=== PATIENT | male | born 1975 | race Caucasian/White ===

== ENCOUNTER 2023-12-13 16:52 | Emergency (ER) | payer MEDICAID, SELFPAY ==
--- NOTE | ~2023-12-13 | XR_ITS ---
EXAMINATION: XR CHEST CLINICAL INFORMATION: Chest pain, shortness of breath COMPARISON: X-ray 09/15/2011 TECHNIQUE: Frontal view of the chest was obtained. FINDINGS: The cardiomediastinal silhouette is within normal limits. The lungs are well expanded. There is no focal consolidation, edema, or effusion. No pneumothorax. No acute osseous abnormality. XR/XR chest 1V IMPRESSION: No significant interval change from previous. No acute pulmonary process seen.
--- NOTE | 2023-12-13 16:53 | ECG_ITS ---
Test Reason : tacardya Blood Pressure : / mmHG Vent. Rate : 166 BPM Atrial Rate : 166 BPM P-R Int : 104 ms QRS Dur : 096 ms QT Int : 302 ms P-R-T Axes : 000 -23 051 degrees QTc Int : 501 ms Sinus tachycardia cannot exlude Lateral infarct , age undetermined Inferior infarct (cited on or before 15-SEP-2011) Abnormal ECG When compared with ECG of 15-SEP-2011 13:40, Vent. rate has increased BY 91 BPM Referred By: Nieves Hoffmann Electronically Signed By:STACEY MIRANDA
--- NOTE | 2023-12-13 17:00 | ED_ITS ---
HPI - General Adult General Chief complaint: Psychiatric Symptoms Stated complaint: SI,TOOK 2 ADDERAL,TACHY Time Seen by Provider: 12/13/23 18:59 Source: patient and EMS Mode of arrival: EMS Limitations: no limitations History of Present Illness HPI narrative: 48-year-old male presents with anxiety, depression and suicidal ideation, no particular plan ongoing for the past few days. Now having palpitations, patient does admit to taking to 30 mg Adderall tablets prior to arrival as well as using cocaine earlier today. Patient denies any other drugs. Denies alcohol. Denies chest pain, shortness of breath, nausea, vomiting, abdominal pain, headache, vision changes, dizziness and weakness. Related Data Allergies Allergy/AdvReac Type Severity Reaction Status Date / Time No Known Allergies Allergy Verified 12/13/23 17:25 Review of Systems 2 Review of Systems: Yes all other systems are reviewed and are negative FOR[facility]LY [facility] Past Medical History Attestation statement: The following information was validated with the patient. Source: old records reviewed and nursing notes reviewed Social History Social History Smoked in Last 30 Days: Yes Use of substances other than those prescribed or required for medical reasons: Yes Substance Use Type: Crack/Cocaine Advance Directives: No Advance Directives Information Provided: No Physical Exam ED Vital Signs: Vital Signs - 24 hr 12/13/23 17:25 12/13/23 18:24 12/13/23 20:50 Temperature 98.7 F 98.9 F Pulse Rate 142 H 132 H 123 H Respiratory Rate 20 14 15 Blood Pressure 157/86 H 99/72 112/62 Pulse Oximetry 98 97 97 Oxygen Delivery Method Room Air Room Air Room Air 12/13/23 23:41 12/13/23 23:59 Temperature 98.5 F 98.5 F Pulse Rate 83 83 Respiratory Rate 18 18 Blood Pressure 112/71 112/71 Pulse Oximetry 97 97 Oxygen Delivery Method Room Air Room Air BMI result Body Mass Index 27.9 vss Appearance: Alert.? Oriented X3.? No acute distress.? Head: Normocephalic, atraumatic, no step-offs or deformities Eyes: Pupils equal, round and reactive to light.? CVS: Normal heart rate and rhythm.? Pulses normal.? Respiratory: No respiratory distress.? Breath sounds normal.? Abdomen: Soft and nontender.? Skin: Skin warm and dry.? Normal skin color.? Normal skin turgor.? Extremities: No lower extremity edema.? No calf ttp. 5/5 strength to bilateral upper and lower extremities Back: No midline tenderness, no C-spine tenderness, full range of motion, no CVA tenderness bilaterally Neuro: Oriented X 3.? No motor deficit.? No sensory deficit. CN 2-12 intact Course Reevaluation(s) Reevaluation #1: CBC with leukocytosis 20.9 with a left shift this is likely reactive. Chemistry with low potassium 3.2, oral potassium ordered. Also noted to have magnesium of 1.5 oral Mag also ordered. Troponin 18.1, repeat pending, EKG tachycardic however no ischemic changes. Salicylates, acetaminophen ethanol negative. COVID negative. Time: 18:42 Reevaluation #2: Second troponin pending. Signed out to Dr. Obrien pending revaluation Time: 18:53 Medications Administered Discontinued Medications Generic Name Dose Route Start Last Admin Trade Name Deshawnq PRN Reason Stop Dose Admin Sodium Chloride 1,000 mls @ 999 mls/hr 12/13/23 17:30 12/13/23 18:35 Ns IV 12/13/23 18:30 Infused .Q1H1M GILDARDO Infusion Lorazepam 1 mg 12/13/23 16:59 12/13/23 17:15 Lorazepam 1 Mg Tablet PO 12/13/23 17:00 1 mg ONCE ONE Administration Lorazepam 1 mg 12/13/23 17:04 12/13/23 17:15 Lorazepam 1 Mg Tablet PO 12/13/23 17:05 1 mg ONCE ONE Administration Magnesium Oxide 400 mg 12/13/23 18:25 12/13/23 19:26 Magnesium Oxide 400 Mg Tablet PO 12/13/23 18:26 400 mg ONCE ONE Administration Potassium Chloride 20 meq 12/13/23 18:25 12/13/23 19:26 Potassium Chloride Er 20 Meq Tab.Er.Prt PO 12/13/23 18:26 20 meq ONCE ONE Administration Medical Decision Making Medical Decision Making [facility] Narrative: 1708 48-year-old male presents with palpitations status post taking to 30 mg Adderall X few hors, suicidal ideation X few days .Also admits to cocaine use at around 1 pm PE- rapid regular rhythm heart rate around 150s 160s. History and physical exam concerning for tachycardia likely secondary to substance use Adderall and cocaine. Unlikely ACS however will rule out. I do not suspect PE. I am concerned for worsening anxiety, depression and suicidal ideation. Unlikely bipolar schizophrenia. Plan medical clearance. 23:45 patient denied taking Adderall said that he had cocaine earlier feels safe to go home denied any SI refusing to be consulted with care team will give him care team contacts for future if he needs any help vitals are stable heart rate 83 beats per minute blood pressure 112/71 urine tox negative for amphetamine shows cocaine and THC Differential Diagnosis Differential Diagnoses: The differential diagnosis associated with the presentation includes History and physical exam concerning for tachycardia likely secondary to substance use Adderall and cocaine. Unlikely ACS however will rule out. I do not suspect PE. I am concerned for worsening anxiety, depression and suicidal ideation. Unlikely bipolar schizophrenia. Admission/Observation Consideration of admission/observation: Escalation of care including admission/observation considered Possible Lab Data MDM Lab Attestation statement: I reviewed the patient's lab results. 12/13/23 17:50 12/13/23 23:38 Labs: Lab Results 12/13/23 12/13/23 12/13/23 Range/Units 17:50 19:14 23:38 WBC 20.9 H (4.8-10.8) X10*3/uL RBC 4.70 (4.60-5.80) X10*6/uL Hgb 14.2 (14.0-18.0) g/dl Hct 39.4 L (42.0-52.0) % MCV 83.8 (80.0-98.0) fL MCH 30.2 (27.0-33.0) pg MCHC 36.0 (31.0-36.0) g/dl RDW 12.6 (11.0-16.0) % Plt Count 410 H (160-400) X10*3/uL MPV 9.6 (9.4-12.4) fL Immature Gran % (Auto) 0.6 H (0.0-0.4) % Neut % (Auto) 92.8 H (45-73) % Lymph % (Auto) 3.4 L (20-40) % [place] % (Auto) 3.0 (2-11) % Eos % (Auto) 0.0 (0-4) % Baso % (Auto) 0.2 (0-2) % Lymph # (Auto) 0.7 L (1.2-4.9) X10*3/uL [place] # (Auto) 0.6 (0.1-1.2) X10*3/uL Eos # (Auto) 0.0 (0.0-0.4) X10*3/uL Baso # (Auto) 0.0 (0.0-0.2) X10*3/uL Abs Immat Gran (auto) 0.13 H (0.00-0.03) X10*3/uL Absolute Neuts (auto) 19.4 H (2.0-8.3) x10*3/uL Absolute Nucleated RBC 0.000 (0.0-0.012) X10*3/uL Nucleated RBC % (auto) 0.0 (0.0-0.2) /100WBC Smear Tech's Comments VERIFIED Sodium 137 139 (135-145) mmol/L Potassium 3.2 L 3.7 (3.3-5.1) mmol/L Chloride 106 106 (96-108) mmol/L Carbon Dioxide 19 L 23 (22-29) mmol/L Anion Gap 15 14 (12-20) BUN 15 12 (9-16) mg/dL Creatinine 1.24 0.89 (0.5-1.4) mg/dL Estim Creat Clear Calc 83.9 116.9 Estimated GFR > 60 > 60 Random Glucose 199 H 100 (60-115) mg/dL Calcium 8.9 9.5 D (8.4-10.2) mg/dL Magnesium 1.5 L (1.6-2.6) mg/dL Total Bilirubin 0.5 (0.0-1.0) mg/dL AST 21 (5-37) U/L ALT 18 (0-40) U/L Alkaline Phosphatase 74 (39-117) U/L Total Creatine Kinase 170 233 H (38-174) U/L Troponin I High Sens 18.1 40.3 H D 47.5 H (<3.5-35.0) ng/L Total Protein 7.2 (6.5-8.0) g/dL Albumin 4.1 (3.5-5.0) g/dL Urine Color Urine Appearance Urine pH (5.0-9.0) Ur Specific [place] (1.005-1.025) Urine Protein (Neg-Trace) mg/dL Urine Glucose (UA) (Negative) mg/dL Urine Ketones (Negative) mg/dL Urine Blood (Negative) Urine Nitrite (Negative) Ur Leukocyte Esterase (Negative) Urine RBC (0-2) /HPF Urine WBC (0-5) /HPF Ur Squamous Epith Cells (0-2) /HPF Urine Bacteria (None Seen) Hyaline Casts (0-2) /LPF Salicylates < 5.0 L (15-30) mg/dL Urine Opiates Screen (Not Detect) Urine Fentanyl Screen (Not Detect) Acetaminophen < 3 (<30) mcg/mL Ur Barbiturates Screen (Not Detect) Ur Phencyclidine Scrn (Not Detect) Ur Amphetamines Screen (Not Detect) U Benzodiazepines Scrn (Not Detect) Urine Cocaine Screen (Not Detect) U Marijuana (THC) Screen (Not Detect) Ethyl Alcohol < 10 mg/dL COVID-19 (JORGE) Negative (Negative) COVID-19 Clin Com See Note 12/13/23 12/13/23 Range/Units 23:43 23:44 WBC (4.8-10.8) X10*3/uL RBC (4.60-5.80) X10*6/uL Hgb (14.0-18.0) g/dl Hct (42.0-52.0) % MCV (80.0-98.0) fL MCH (27.0-33.0) pg MCHC (31.0-36.0) g/dl RDW (11.0-16.0) % Plt Count (160-400) X10*3/uL MPV (9.4-12.4) fL Immature Gran % (Auto) (0.0-0.4) % Neut % (Auto) (45-73) % Lymph % (Auto) (20-40) % [place] % (Auto) (2-11) % Eos % (Auto) (0-4) % Baso % (Auto) (0-2) % Lymph # (Auto) (1.2-4.9) X10*3/uL [place] # (Auto) (0.1-1.2) X10*3/uL Eos # (Auto) (0.0-0.4) X10*3/uL Baso # (Auto) (0.0-0.2) X10*3/uL Abs Immat Gran (auto) (0.00-0.03) X10*3/uL Absolute Neuts (auto) (2.0-8.3) x10*3/uL Absolute Nucleated RBC (0.0-0.012) X10*3/uL Nucleated RBC % (auto) (0.0-0.2) /100WBC Smear Tech's Comments Sodium (135-145) mmol/L Potassium (3.3-5.1) mmol/L Chloride (96-108) mmol/L Carbon Dioxide (22-29) mmol/L Anion Gap (12-20) BUN (9-16) mg/dL Creatinine (0.5-1.4) mg/dL Estim Creat Clear Calc Estimated GFR Random Glucose (60-115) mg/dL Calcium (8.4-10.2) mg/dL Magnesium (1.6-2.6) mg/dL Total Bilirubin (0.0-1.0) mg/dL AST (5-37) U/L ALT (0-40) U/L Alkaline Phosphatase (39-117) U/L Total Creatine Kinase (38-174) U/L Troponin I High Sens (<3.5-35.0) ng/L Total Protein (6.5-8.0) g/dL Albumin (3.5-5.0) g/dL Urine Color Yellow Urine Appearance Clear Urine pH 6.0 (5.0-9.0) Ur Specific [place] 1.020 (1.005-1.025) Urine Protein Negative (Neg-Trace) mg/dL Urine Glucose (UA) Negative (Negative) mg/dL Urine Ketones Trace (Negative) mg/dL Urine Blood Moderate (2+) H (Negative) Urine Nitrite Negative (Negative) Ur Leukocyte Esterase Small (1+) H (Negative) Urine RBC 6-10 H (0-2) /HPF Urine WBC 0-5 (0-5) /HPF Ur Squamous Epith Cells 0-2 (0-2) /HPF Urine Bacteria None Seen (None Seen) Hyaline Casts 0-2 (0-2) /LPF Salicylates (15-30) mg/dL Urine Opiates Screen Not Detected (Not Detect) Urine Fentanyl Screen Not Detected (Not Detect) Acetaminophen (<30) mcg/mL Ur Barbiturates Screen Not Detected (Not Detect) Ur Phencyclidine Scrn Not Detected (Not Detect) Ur Amphetamines Screen Not Detected (Not Detect) U Benzodiazepines Scrn Not Detected (Not Detect) Urine Cocaine Screen POSITIVE H (Not Detect) U Marijuana (THC) Screen POSITIVE H (Not Detect) Ethyl Alcohol mg/dL COVID-19 (JORGE) (Negative) COVID-19 Clin Com Independent Interpretation I performed an independent interpretation of an: EKG (Vent. Rate : 166 BPM Atrial Rate : 166 BPM P-R Int : 104 ms QRS Dur : 096 ms QT Int : 302 ms P-R-T Axes : 000 -23 051 degrees QTc Int : 501 ms Sinus tachycardia with short CO Lateral infarct , age undetermined Inferior infarct (cited on or before 15-SEP-2011) Abnormal ) Radiology Impression Discussion of test interpretation with radiology: I have reviewed the radiologist's reading. Chronic Conditions Patient?s care impacted by: Other (Polysubstance abuse, anxiety, depression) Social Determinants Patient?s care significantly limited by Social Determinants of Health including: Inadequate housing, Alcoholism and drug addiction in family and Other Social Determinant of Health Critical Care Time Critical Care Time Critical Care Time: Yes Total Critical Care Time: 35 Attestation: I attest to this time spent taking care of the patient, obtaining history, physical, reviewing labs, imaging, speaking to my attending, speaking to specialist. Discharge Plan Discharge Clinical Impression: Cocaine abuse Patient Disposition: Home, Self-Care Instructions: Cocaine Abuse (ED) Additional Instructions: Stop using cocaine Follow-up with detox Interventions: [place]-Suicide Risk Severity Scale Last Done: 12/13/23 23:54 ED Discharge Assessment Last Done: 12/13/23 23:59 Discharge Date/Time: 12/14/23 00:20
[2023-12-13 17:06] VITALS: BP 155/89; PULSE 160; O2SAT 97
[2023-12-13] MEDS: LORazepam 1 MG TABLET PO ×2 (17:15)
[2023-12-13 17:25] VITALS: BP 157/86; PULSE 142; RESP 20; O2SAT 98; BMI 27.9
--- NOTE | 2023-12-13 17:30 | PC.NURSE ---
PT BELONGINGS IN POD #10, PT CHANGED INTO HOSPITAL ATTIRE. SITTER AT BEDSIDE. SINUS TACH ON MONITOR, CURRENTLY DENIES CP. SKIN COLOUR APPRORPIATE FOR ETHNICITY, WARM, SLIGHTLY DIAPHORETIC. IVF RUNNING. IN NAD RESTING IN STRETCHER. WCTM.
[2023-12-13] MEDS: 0.9 % Sodium Chloride 1,000 ML 999 ML IV (17:32)
[2023-12-13 17:57] LABS: Basophils Percent Auto 0.2 % (0-2); Hematocrit 39.4 % (42.0-52.0); Hemoglobin 14.2 g/dl (14.0-18.0); Imm Gran Abs Auto 0.13 X10*3/uL (0.00-0.03); Imm Gran Pct Auto 0.6 % (0.0-0.4); Lymphocytes Absolute Auto 0.7 X10*3/uL (1.2-4.9); Lymphocytes Percent Auto 3.4 % (20-40); MANUAL DIFF FLAG SCAN; Mean Corpuscular Hemoglobin 30.2 pg (27.0-33.0); Mean Corpuscular Volume 83.8 fL (80.0-98.0); Mean Platelet Volume 9.6 fL (9.4-12.4); Monocytes Absolute Auto 0.6 X10*3/uL (0.1-1.2); Neutrophils Absolute Auto 19.4 x10*3/uL (2.0-8.3); Neutrophils Percent Auto 92.8 % (45-73); Platelet Count 410 X10*3/uL (160-400); Red Cell Distribution Width 12.6 % (11.0-16.0); SCAN SMEAR FLAG 1; White Blood Count 20.9 X10*3/uL (4.8-10.8)
[2023-12-13 18:08] LABS: Ethanol < 10 mg/dL
[2023-12-13 18:10] LABS: Acetaminophen LAB < 3 mcg/mL (<30); Salicylate < 5.0 mg/dL (15-30)
[2023-12-13 18:11] LABS: Albumin Level 4.1 g/dL (3.5-5.0); Alkaline Phosphatase 74 U/L (39-117); Anion Gap 15 (12-20); Aspartate Amino Transferase 21 U/L (5-37); Bilirubin Total 0.5 mg/dL (0.0-1.0); Blood Urea Nitrogen 15 mg/dL (9-16); Calcium 8.9 mg/dL (8.4-10.2); Carbon Dioxide 19 mmol/L (22-29); Chloride 106 mmol/L (96-108); Creatinine Clr Calc Pharmacy 83.9; Estimated Glomerular Filt Rate > 60; Glucose Random 199 mg/dL (60-115); Magnesium 1.5 mg/dL (1.6-2.6); Potassium 3.2 mmol/L (3.3-5.1); Sodium 137 mmol/L (135-145); Total Protein 7.2 g/dL (6.5-8.0)
[2023-12-13 18:17] LABS: Troponin-I High Sensitivity 18.1 ng/L (<3.5-35.0)
[2023-12-13 18:18] LABS: SLIDE REVIEW VERIFIED
[2023-12-13 18:24] VITALS: BP 99/72; PULSE 132; RESP 14; TEMP 37.1; O2SAT 97
[2023-12-13 18:24] LABS: COVID-19 Test Negative (Negative); IDNOW Serial# 152EDE1D
[2023-12-13 18:25] LABS: Alanine Aminotransferase 18 U/L (0-40)
[2023-12-13] MEDS: Magnesium Oxide 400 MG TABLET PO (19:26)
[2023-12-13] MEDS: Potassium Chloride ER 20 MEQ TAB.ER.PRT PO (19:26)
[2023-12-13 19:43] LABS: Troponin-I High Sensitivity 40.3 ng/L (<3.5-35.0)
[2023-12-13 20:50] VITALS: BP 112/62; PULSE 123; RESP 15; TEMP 37.2; O2SAT 97
--- NOTE | 2023-12-13 22:50 | PC.NURSE ---
Alerted by sitter that patient is restless, pulling off tele leads on stretcher, becoming agitated. Security called to bedside. Explained to patient that he needs to stay on the heart monitor, offered to give patient snacks and/or drinks. Patient refused refreshment, wants his phone, offered cordless hospital phone, patient refused that phone, verbalized understanding the need for him to stay on the monitor. Informed patient we will let him know when he is medically cleared.
[2023-12-13 23:41] VITALS: BP 112/71; PULSE 83; RESP 18; TEMP 36.9; O2SAT 97
--- NOTE | 2023-12-13 23:44 | MHC.EDTECH ---
This tech took over care of patient at 2300,hourly rounds and vitals completed,labs and urine obtained and sent to lab. Sitter at bedside for safety
[2023-12-13 23:57] LABS: Anion Gap 14 (12-20); Blood Urea Nitrogen 12 mg/dL (9-16); Calcium 9.5 mg/dL (8.4-10.2); Carbon Dioxide 23 mmol/L (22-29); Chloride 106 mmol/L (96-108); Creatinine Clr Calc Pharmacy 116.9; Estimated Glomerular Filt Rate > 60; Glucose Random 100 mg/dL (60-115); Potassium 3.7 mmol/L (3.3-5.1); Sodium 139 mmol/L (135-145)
[2023-12-13 23:59] VITALS: BP 112/71; PULSE 83; RESP 18; TEMP 36.9; O2SAT 97
[2023-12-14] LABS: Appearance Urine Clear; Color Urine Yellow; Glucose Urine UA Negative (Negative); Leukocyte Esterase Urine Small (1+) (Negative); Nitrite Urine Negative (Negative); UMIC TRIGGER UACC YES; Urine Blood Moderate (2+) (Negative); Urine Ketones Trace mg/dL (Negative); Urine Protein Negative (Neg-Trace)
[2023-12-14 00:03] LABS: Troponin-I High Sensitivity 47.5 ng/L (<3.5-35.0)
[2023-12-14 00:03] LABS: Amphetamine Screen Urine Not Detected (Not Detect); Barbiturates, Urine Not Detected (Not Detect); Benzodiazepines Screen Urine Not Detected (Not Detect); Cannabinoid Screen Urine POSITIVE (Not Detect); Cocaine Screen Urine POSITIVE (Not Detect); Fentanyl, urine Not Detected (Not Detect); Opiate Screen Urine Not Detected (Not Detect); Phencyclidine Screen Urine Not Detected (Not Detect)
[2023-12-14 00:23] LABS: Bacteria Urine None Seen (None Seen); Hyaline Casts Urine 0-2 /LPF (0-2); Squamous Epithelial Cell Urine 0-2 /HPF (0-2); UACC Culture Trigger YES; WBC Urine 0-5 /HPF (0-5)
== END 2023-12-14 00:20 | disposition home or self-care (01) ==
PROVIDERS: Physician Assistant; Emergency Provider Internal Medicine
DX: F14.10 Cocaine abuse, uncomplicated (principal); E87.6 Hypokalemia; F41.9 Anxiety disorder, unspecified; F32.A Depression, unspecified
CPT/HCPCS: 36415; 71045; 80048; 80053; 80143; 80179; 80307; 81001; 81003; 82550; 83735; 84484; 85025; 87086; 87635; 93005; 96360; 99284; 99285

== ENCOUNTER → 2023-12-13 16:53 | Outpatient (BNV) | payer MEDICAID, SELFPAY | PROVIDERS: Emergency Provider Internal Medicine; Visit Provider Internal Medicine | DX: R00.0 Tachycardia, unspecified (principal); R94.31 Abnormal electrocardiogram [ECG] [EKG] | CPT/HCPCS: 93010 ==